=== PATIENT | female | born 1970 | race American Indian/Alaskan Native ===

== ENCOUNTER 2018-07-22 09:37 | Observation (INO) | payer BC, OTHER ==
[2018-07-14 10:54] LABS: Basophils % (Auto) 0.7 % (0.0-1.8); Eosinophils # (Auto) 0.2 K/mm3 (0.0-0.4); Eosinophils % (Auto) 3.8 % (0.0-4.3); Hematocrit 35.5 % (30.3-42.9); Hemoglobin 11.9 gm/dl (10.1-14.3); Lymphocytes # (Auto) 1.2 K/mm3 (1.2-5.4); Lymphocytes % (Auto) 23.5 % (13.4-35.0); Mean Corpuscular HGB Conc 33 % (30-34); Mean Corpuscular Volume 89 fl (79-97); Monocytes # (Auto) 0.3 K/mm3 (0.0-0.8); Monocytes % (Auto) 6.3 % (0.0-7.3); Platelet Count 218 K/mm3 (140-440); Red Blood Count 3.99 M/mm3 (3.65-5.03); Red Cell Distribution Width 13.6 % (13.2-15.2)
--- NOTE | 2018-07-14 12:24 | Anesthesia Consultation ---
Anesthesia Consult and Med Hx Date of service: 07/22/18 - Airway Anesthetic Teeth Evaluation: Good ROM Head & Neck: Adequate Mental/Hyoid Distance: Adequate Mallampati Class: Class II Intubation Access Assessment: Probably Good - Pulmonary Exam CTA: Yes - Cardiac Exam Cardiac Exam: No Murmur - Pre-Operative Health Status ASA Pre-Surgery Classification: ASA2 Proposed Anesthetic Plan: General Nerve Block: TAP - Pre-Anesthesia Comment Pre-Anesthesia Comments: ASA 2 History of anemia, fibroids and painful periods. No anesthesia complications in the past - Central Nervous System Hx Psychiatric Problems: No - Hematic Hx Anemia: Yes - Other Systems Hx Alcohol Use: Yes (Occas) Hx Cancer: No
[~2018-07-22 09:37] MED LIST: LACTATED RINGERS 1,000 ML IV SCH; MARCAINE-EPI 0.25%-1:200,000 INFILTRATI ONE; METHYLENE BLUE ONE; NEOSPORIN GU IR ONE; NEURONTIN PO NR; VERSED IV NR
[2018-07-22] MEDS ORDERED: ANCEF/STERILE WATER 2 GM/20 ML 2 GM/20 ML SYRINGE IV NR (10:00)
--- NOTE | 2018-07-22 10:04 | History and Physical Report ---
History of Present Illness Date of examination: 07/22/18 Chief complaint: Symptomatic uterine fibroids History of present illness: Pt is a 48yo BF LMP 07/04/18 presents for surgical evaluation and treatment of uterine fibroids. Pt complains of prolonged heavy vaginal bleeding and was hospitalized due to severe symptomatic anemia requiring a blood transfusion. Pelvic u/s showed an enlarged uterus measuring 10.2 x 5.6 x 6.5cm with multiple fibroids and endometrial biopsy showed endometrial polyps. She is now scheduled for a Robotic Assisted Total Hysterectomy with ovarian conservation. Past History Past Medical History: blood transfusion, hematologic disorders (anemia) Past Surgical History: STAKER SURVEYING/uterine surgery (BTL) STAKER SURVEYING History: fibroids, other (endometrial polyps) Family/Genetic History: none Social history: no significant social history, Medications and Allergies Allergies Allergy/AdvReac Type Severity Reaction Status Date / Time No Known Allergies Allergy Verified 07/09/18 17:33 Home Medications Medication Instructions Recorded Confirmed Last Taken Type Ferrous Sulfate [Feosol 325 MG tab] 1 tab PO BID 07/09/18 07/22/18 07/15/18 09:0 0 History Active Meds: Active Medications Celecoxib (Celebrex) 200 mg PO PREOP NR Stop: 07/22/18 23:00 Fentanyl (Sublimaze) 100 mcg IV ONCE PRN PRN Reason: sedation for nerve block Gabapentin (Neurontin) 300 mg PO PREOP NR Stop: 07/22/18 23:00 Lactated Ringer's (Lactated Ringers) 1,000 mls @ 100 mls/hr IV DIRECT LINDY Cefazolin Sodium (Ancef/Sterile Water 2 Gm/20 Ml) 2 gm in 20 mls @ 80 mls/hr IV PREOP NR; Protocol Midazolam HCl (Versed) 2 mg IV PREOP NR Stop: 07/22/18 23:00 Review of Systems All systems: negative - Vital Signs Vital signs: Vital Signs Temp Pulse Resp BP Pulse Ox 97.2 F L 74 18 103/62 99 07/14/18 10:20 07/14/18 10:20 07/14/18 10:20 07/14/18 10:20 07/14/18 10:20 Temp Pulse Resp BP Pulse Ox 97.2 F L 74 18 103/62 99 07/14/18 10:20 07/14/18 10:20 07/14/18 10:20 07/14/18 10:20 07/14/18 10:20 - Physical Exam Breasts: Positive: deferred Cardiovascular: Regular rate Lungs: Positive: Clear to auscultation Abdomen: Positive: normal appearance Genitourinary (Female): Positive: normal external genitalia Vagina: Positive: normal moisture Uterus: Positive: enlarged Anus/Rectum: Positive: normal perianal skin Extremities: Positive: normal Results Result Diagrams: 07/14/18 10:30 All other labs normal. Ultrasound: report reviewed Assessment and Plan - Patient Problems (1) Uterine fibroid Onset Date: 07/22/18 Current Visit: Yes Status: Acute Qualifiers: Uterine leiomyoma location: intramural, submucous, and subserous Qualified Code(s): D25.1 - Intramural leiomyoma of uterus; D25.0 - Submucous leiomyoma of uterus; D25.2 - Subserosal leiomyoma of uterus Plan to address problem: A: Symptomatic uterine fibroids Menorrhagia P: Admit for a Robotic Assisted Total Hysterectomy with Bilateral salpingectomy (2) Menorrhagia with regular cycle Onset Date: 07/22/18 Current Visit: Yes Status: Acute
[2018-07-22] MEDS ORDERED: DIPRIVAN 10 MG/ML IV ONE (10:05)
[2018-07-22] MEDS ORDERED: SUBLIMAZE ONE (10:05)
[2018-07-22] MEDS ORDERED: KETALAR ONE (10:05)
[2018-07-22] MEDS ORDERED: MARCAINE-EPI 0.25%-1:200,000 INFILTRATI ONE (10:20)
--- NOTE | 2018-07-22 10:53 | Anesthesia Day of Surgery ---
Anesthesia Day of Surgery - Day of Surgery Patient Examined: Yes Patient H&P Reviewed: Yes Patient is NPO: Yes
[2018-07-22] MEDS: SUBLIMAZE IV PRN ×2 (11:23→11:35)
[2018-07-22] MEDS ORDERED: ZEMURON IV ONE ×2 (12:20→12:56)
[2018-07-22] MEDS ORDERED: ZOFRAN ONE (12:56)
[2018-07-22] MEDS ORDERED: DECADRON ONE (12:56)
[2018-07-22] MEDS ORDERED: XYLOCAINE MPF 2% ONE (12:56)
[2018-07-22] MEDS ORDERED: NACL 0.9% IR ONE ×2 (13:41)
[2018-07-22] MEDS ORDERED: NEOSPORIN GU IR ONE (13:41)
[2018-07-22] MEDS ORDERED: SODIUM CHLORIDE FLUSH SYRINGE 10 ML IV PRN (14:26)
[2018-07-22] MEDS ORDERED: ZOFRAN IV PRN (14:26)
[2018-07-22] MEDS ORDERED: REGLAN IV PRN (14:26)
[2018-07-22] MEDS ORDERED: NARCAN 0.4 MG/1 ML IV PRN (14:26)
[2018-07-22] MEDS ORDERED: TYLENOL PO PRN (14:26)
[2018-07-22] MEDS ORDERED: PERCOCET 5/325 PO PRN (14:26)
[2018-07-22] MEDS: DILAUDID IV PRN ×3 (14:42→15:12)
--- NOTE | 2018-07-22 14:47 | Operative Report ---
Operative Report Operative Report: Date of procedure: 07/22/2018 Pre-operative diagnosis: 1. Symptomatic uterine fibroids 2. Menorrhagia Post-operative diagnosis: Same with left ovarian cyst Procedure name(s): 1. Robotic-assisted total hysterectomy 2. Bilateral salpingectomy 3. Left ovarian cystectomy Surgeon: Piotr Colbert MD [employer] Engineer: Nat Estrella CSA Anesthesia: NOLBE Block followed by general endotracheal intubation by Dr. Collier EBL: Less than 100 mL Findings: A 12-14 week size multi-myomatous uterus. Fallopian tubes showed evidence appears tubal ligation bilaterally. Normal right ovary and left ovarian cyst. Perihepatic adhesions. Procedure: After the patient's first correctly identified she was prepped and draped in the usual sterile fashion and placed in the dorsolithotomy position. The bladder was first catheterized using Ferris catheter and the speculum was placed in the vagina and the anterior lip of the cervix was grasped using a single-tooth tenaculum, and the medium Vesicare cup was placed. The tenaculum and speculum was then removed from the vagina and attention was then turned to the abdomen. The skin knife was used to make a small incision approximately 5 cm above the umbilicus through which a 12 mm trocar was placed under direct visualization. After adequate amount of abdominal insufflation visualization of the pelvic organs found the uterus to be enlarged and the tubes showed evidence of previous tubal ligation bilaterally. The right ovary was normal and the left ovary was cystic. A right and left paramedian incision was made through which the 8 mm trochars were placed under direct visualization and a 5 mm trocar was placed in the right lower quadrant. The patient was then placed in steep Trendelenburg positioning and the robot was docked on the patient's left side. After all the robotic ports were connected and adequate functioning of the robotic arms were tested the surgeon then proceeded to the console to begin the hysterectomy. First the left round ligament was grasped, cauterized and cut, the left utero- ovarian ligaments were grasped, cauterized and cut, and the left fallopian tube also grasped, cauterized and cut along the mesosalpinx, thus freeing the left ovary from the left uterine sidewall. The left ovarian cyst was excised and sent to pathology. The same procedure was performed on the right. The right round ligament was grasped, cauterized and cut, the right utero-ovarian ligaments were grasped, cauterized and cut, and the right fallopian tube also grasped, cauterized and cut along the mesosalpinx, thus freeing the right ovary from the right uterine sidewall. The bladder flap was taken down anteriorly and the uterine vessels were grasped, cauterized and cut bilaterally. The cardinal ligaments were sequentially grasped, cauterized and cut down to the level of the uterosacral ligaments. At this time the posterior colpotomy was performed over the Vcare cup, and the cervix was circumscribed beginning posteriorly and meeting anteriorly until the cervix was freed. The cervix and uterus was then removed through the vagina and sent to pathology. The vaginal cuff was then closed using 2-0 Vloc suture in a running fashion. Irrigation was then performed and after good hemostasis was achieved the procedure was considered complete. The Tisseel sealant was then sprayed across the vaginal cuff site, and after excellent hemostasis was assured Interceed was placed across the vaginal cuff site. The intra-abdominal pressure was reduced to 8 mmHg and again all pedicles were examined and found to be hemostatic. All instruments were then removed from the abdominal cavity. And each incision was closed using 0 Vicryl suture in a [id number] configuration on the fascia followed by 4-0 Monocryl suture in a sub-cuticular fashion on the skin. Each incision was also infiltrated using 0.5% Marcaine solution. The vaginal pack was removed. The patient tolerated the procedure well and was transported to the recovery room in stable condition.
[2018-07-22] MEDS: TORADOL IV SCH ×2 (15:00→21:21)
[2018-07-22] MEDS ORDERED: TORADOL ONE (15:01)
[2018-07-22] MEDS ORDERED: DILAUDID ONE (15:11)
[2018-07-22] MEDS ORDERED: MILK OF MAGNESIA PO PRN (16:00)
[2018-07-22] MEDS: D5LR 1,000 ML IV SCH (17:10)
[2018-07-22] MEDS: NORCO 5/325 PO PRN (18:58)
[2018-07-22] MEDS: ANCEF/NS 1 GM/50 ML 1 GM/50 ML BAG IV SCH (21:20)
[2018-07-22] MEDS: COLACE PO SCH (22:14)
[2018-07-23] MEDS: D5LR 1,000 ML IV SCH (01:33)
[2018-07-23] MEDS: NORCO 5/325 PO PRN ×2 (04:57→11:43)
[2018-07-23] MEDS: ANCEF/NS 1 GM/50 ML 1 GM/50 ML BAG IV SCH (04:57)
[2018-07-23] MEDS: TORADOL IV SCH ×2 (04:58→11:40)
[2018-07-23 07:27] LABS: Hematocrit 32.8 % (30.3-42.9); Hemoglobin 10.8 gm/dl (10.1-14.3)
--- NOTE | 2018-07-23 07:27 | Progress Note ---
Assessment and Plan - Patient Problems (1) Uterine fibroid Onset Date: 07/22/18 Current Visit: Yes Status: Resolved Qualifiers: Uterine leiomyoma location: intramural, submucous, and subserous Qualified Code(s): D25.1 - Intramural leiomyoma of uterus; D25.0 - Submucous leiomyoma of uterus; D25.2 - Subserosal leiomyoma of uterus (2) Menorrhagia with regular cycle Onset Date: 07/22/18 Current Visit: Yes Status: Resolved (3) Status post robot-assisted surgical procedure Onset Date: 07/23/18 Current Visit: Yes Status: Resolved Plan to address problem: A: S/P RATH - POD #1 Doing well P: May go home today. Subjective - Subjective Date of service: 07/23/18 Principal diagnosis: s/p RATH - POD #1 Interval history: Pt is feeling well without complaints. No bleeding and pain improved. She is tolerating a liquid diet without nausea or vomiting, ambulating and voiding without difficulty. Patient reports: appetite normal, voiding normally, pain well controlled, ambulating normally, no dizzy ambulation, no flatus, no nauseated Objective - Vital Signs Latest vital signs: Vital Signs Temp Pulse Pulse Resp Resp BP BP 07/23/18 04:58 16 07/23/18 04:57 16 07/23/18 04:20 98.3 F 71 18 104/62 07/23/18 00:35 98.8 F 73 20 103/58 07/23/18 00:02 16 07/22/18 22:10 16 07/22/18 21:21 16 07/22/18 20:11 98.9 F 79 18 110/68 07/22/18 18:58 14 07/22/18 16:17 98.9 F 82 82 14 126/77 07/22/18 15:30 75 12 128/70 07/22/18 15:15 77 12 129/71 07/22/18 15:10 99.1 F 07/22/18 15:00 71 12 132/66 07/22/18 14:45 65 12 140/55 07/22/18 14:40 68 12 141/60 07/22/18 14:35 62 12 135/49 07/22/18 14:33 97.3 F L 70 12 130/44 07/22/18 11:40 80 12 116/64 07/22/18 11:35 90 17 115/70 07/22/18 11:30 80 13 115/64 07/22/18 11:25 80 16 113/62 07/22/18 11:20 80 13 117/67 07/22/18 11:15 83 14 111/66 07/22/18 10:30 98.5 F 73 16 119/71 Pulse Ox 07/23/18 04:58 07/23/18 04:57 07/23/18 04:20 100 07/23/18 00:35 100 07/23/18 00:02 07/22/18 22:10 07/22/18 21:21 07/22/18 20:11 100 07/22/18 18:58 07/22/18 16:17 97 07/22/18 15:30 100 07/22/18 15:15 100 07/22/18 15:10 07/22/18 15:00 100 07/22/18 14:45 100 07/22/18 14:40 100 07/22/18 14:35 100 07/22/18 14:33 100 07/22/18 11:40 100 07/22/18 11:35 100 07/22/18 11:30 100 07/22/18 11:25 100 07/22/18 11:20 100 07/22/18 11:15 100 07/22/18 10:30 100 Intake and Output 07/22/18 07/23/18 07/23/18 22:59 06:59 14:59 Intake Total 1380 1720 Output Total 1220 1700 Balance 160 20 Intake: IV 50 1000 ANCEF/NS 1 GM/50 ML 1 gm 50 In 50 ml @ 100 mls/hr IV Q8H LINDY Rx#:[id number] D5lr 1,000 ml @ 125 mls/ 1000 hr IV DIRECT LINDY Rx#: [id number] Oral 980 720 Other 350 Output: Urine 1220 1700 Indwelling Catheter 1150 1700 Other: Total, Intake Amount 480 480 Total, Output Amount 1100 800 Voiding Method Indwelling Catheter Weight 70.76 kg - Exam Lungs: Present: Clear to auscultation Abdomen: Present: normal appearance, soft Incision: Present: normal, dry, intact - Labs Labs: Laboratory Tests 07/14/18 07/22/18 10:30 10:58 WBC 5.2 RBC 3.99 Hgb 11.9 Hct 35.5 MCV 89 MCH 30 MCHC 33 RDW 13.6 Plt Count 218 Lymph % (Auto) 23.5 [place] % (Auto) 6.3 Eos % (Auto) 3.8 Baso % (Auto) 0.7 Lymph # 1.2 [place] # 0.3 Eos # 0.2 Baso # 0.0 Seg Neutrophils % 65.7 Seg Neutrophils # 3.4 Blood Type O POSITIVE Antibody Screen TNR YARED Antibody Screen Negative
--- NOTE | 2018-07-23 07:28 | Discharge Summary ---
Providers - Providers Date of Admission: 07/22/18 14:26 Date of discharge: 07/23/18 Attending physician: ADRIANNA العراقي Primary care physician: ADRIANNA العراقي Hospitalization Reason for admission: other (Symptomatic uterine fibroids) Procedure: other (s/p RATH with Bilateral salpingectomy) Incision: normal, dry, intact complications: none Discharge diagnosis: other (s/p RATH) Hospital course: Pt is a 48yo BF LMP 07/04/18 who presented for surgical evaluation and treatment of uterine fibroids. Pt complained of prolonged heavy vaginal bleeding and was hospitalized due to severe symptomatic anemia requiring a blood transfusion. Pelvic u/s showed an enlarged uterus measuring 10.2 x 5.6 x 6.5cm with multiple fibroids and endometrial biopsy showed endometrial polyps. She underwent an uncomplicated Robotic Assisted Total Hysterectomy with Bilateral s alpingectomy and tolerated the procedure well. By POD #1 she was tolerating a reg diet without nausea or vomiting, ambulating and voiding without difficulty. She was therefore discharged to home on POD #1 in stable condition. Condition at discharge: Good Disposition: DC-01 TO HOME OR SELFCARE - Discharge Diagnoses (1) Uterine fibroid Status: Resolved Qualifiers: Uterine leiomyoma location: intramural, submucous, and subserous Qualified Code(s): D25.1 - Intramural leiomyoma of uterus; D25.0 - Submucous leiomyoma of uterus; D25.2 - Subserosal leiomyoma of uterus (2) Menorrhagia with regular cycle Status: Resolved (3) Status post robot-assisted surgical procedure Status: Resolved Plan - Discharge Medications Prescriptions: Ibuprofen [Motrin] 800 mg PO Q8HR PRN #30 tablet PRN Reason: Pain, Mild (1-3) oxyCODONE /ACETAMINOPHEN [Percocet 5/325 mg] 1 tab PO Q6H PRN #30 tablet PRN Reason: Pain, Moderate (4-6) - Provider Discharge Summary Activity: routine, no sex for 6 weeks, no heavy lifting 4 weeks, no strenuous exercise Diet: routine Instructions: routine Additional instructions: [] Smoking cessation referral if applicable(refer to patient education folder for contact #) [] Refer to [facility]'s [facility] Booklet Call your doctor immediately for: * Fever > 100.5 * Heavy vaginal bleeding ( >1 pad per hour) * Severe persistent headache * Shortness of breath * Reddened, hot, painful area to leg or breast * Drainage or odor from incision. * Keep incision clean and dry at all times and follow doctor's instructions regarding bathing/showering - Follow up plan Follow up: ADRIANNA العراقي MD [Primary Care Provider] - 14 Days
[2018-07-23] MEDS: COLACE PO SCH (11:40)
[2018-07-23 12:28] VITALS: BP 100/54
== END 2018-07-23 13:30 | disposition home or self-care (01) ==
LOC: OR 09:37 → OB 14:26
PROVIDERS: ADMIT Obstetrics & Gynecology; ATTEND Obstetrics & Gynecology
DX: D25.9 Leiomyoma of uterus, unspecified (principal); N92.0 Excessive and frequent menstruation with regular cycle; D64.9 Anemia, unspecified; Z98.890 Other specified postprocedural states; Z53.31 Laparoscopic surgical procedure converted to open procedure
CPT/HCPCS: 36415; 58552; 64450; 81025; 85014; 85018; 85025; 86850; 86900; 86901; 88305; 88307; 96365; 96366; 96375; 96376; A4217; C1765; C9250; G0378; J0690; J1100; J1170; J1885; J2250; J2405; J2704; J3010; J7120; J7121; Q9968; S2900